=== PATIENT | male | born 1965 | race Caucasian/White ===

== ENCOUNTER → 2019-04-28 15:53 | Outpatient (CLI) | payer OTHER, SELFPAY ==
--- NOTE | 2019-04-28 14:15 | MASS_PTH ---
PATIENT: BEBE WEATHERS LOC: [facility] U#:[id number] AGE/SX: 59/M ROOM: RE04/28/[address]: Dr. Brian Pires MD : 1965 BED: DIS: SPEC #: [id number] RECD: 04/28/19 15:30 STATUS: JOHN RHNODA #: [id number] SIENNA: 04/28/19 14:[address]: Brian Pires DEPT: SURGICAL PATHOLOGY RECD BY: Abhishek Angel ENTERED: 05/01/19 11:04 SP TYPE: Mass OTHR DR: No Primary Care Phys Tissues: Mouth, NOS Procedures: Surgery Specimen Level IV HEADER OPERATION: Lower lip mass biopsy PRE-OP DIAGNOSIS: History of SCCA resection of site TISSUE SUBMITTED: Lower lip mass MICROSCOPIC DIAGNOSIS Lower lip mass, biopsy: Fragments of squamous mucosa with focal ulceration and associated inflammation. Negative for malignancy. See comment. DELFINO:kinsey 9/17/19 COMMENT Refractile material consistent with suture is also noted. Clinical correlation and appropriate follow up are necessary. MICROSCOPIC DESCRIPTION Slides are reviewed. GROSS DESCRIPTION Received in fixative is one container labeled with the patient's name and designated lower lip mass. The specimen consists of three irregular fragments of herrera soft tissue that in aggregate measure 0.6 x 0.1 x 0.1 cm. The specimen is totally submitted in one cassette. / SJ:kinsey 05/01/19 TC:5 CPT: 85574
== END ==
PROVIDERS: Referring Provider Otolaryngology; Visit Provider Otolaryngology
DX: R22.0 Localized swelling, mass and lump, head (principal)
CPT/HCPCS: 88305